=== PATIENT | female | born 2000 | race Two or more races ===

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

== ENCOUNTER 2018-04-26 17:01 | Emergency (ER) | payer MEDICAID ==
[~2018-04-26] VITALS: Ht 167.6 cm; Wt 78.0 kg
[2018-04-26] MEDS ORDERED: SODIUM CHLORIDE 0.9% 1,000 ML IV ONE (17:12)
[2018-04-26] MEDS ORDERED: ACETAMINOPHEN 325MG TABLET PO PRN (17:15)
[2018-04-26 17:52] LABS: CHLORIDE 104 mEq/L (98-107); HEMATOCRIT. 39.5 % (36.0-48.0); HEMOGLOBIN. 13.1 g/dL (12.0-16.0); MEAN CORPUSCULAR HEMOGLOBIN 29.8 pg (28.0-32.0); MEAN CORPUSCULAR VOLUME 89.9 fL (81.0-99.0); MEAN PLATELET VOLUME 8.7 fl (7.4-10.4); PLATELET 301 x1000/uL (130-400); RED BLOOD CELL COUNT 4.39 mill/uL (4.2-5.4); RED CELL DISTRIBUTION WIDTH 13.9 % (11.6-14.6)
[2018-04-26 18:18] LABS: B-HCG QUANTITATIVE 56999 mIU/mL (<3)
[2018-04-26 18:33] LABS: PLATELET ESTIMATE NORMAL
[2018-04-26 19:35] LABS: CLARITY URINE CLEAR (CLEAR); COLOR URINE YELLOW (YELLOW); KETONES URINE NEGATIVE (NEGATIVE); LEUKOCYTE ESTERASE URINE NEGATIVE (NEGATIVE); NITRITE URINE NEGATIVE (NEGATIVE); OCCULT BLOOD URINE NEGATIVE (NEGATIVE); PH URINE 6.5 (4.5-8.0); PROTEIN URINE NEGATIVE (NEGATIVE); SPECIFIC GRAVITY URINE 1.004 (1.005-1.030); UROBILINOGEN URINE 0.2 E.U./dL (0.2-1.0)
[2018-04-26 20:56] VITALS: BP 105/53
== END 2018-04-26 21:00 | disposition home or self-care (01) ==
LOC: ER 17:01
DX: O26.891 Other specified pregnancy related conditions, first trimester (principal); Z3A.12 12 weeks gestation of pregnancy; R10.30 Lower abdominal pain, unspecified; R31.9 Hematuria, unspecified; M54.5 Low back pain; F12.10 Cannabis abuse, uncomplicated
CPT/HCPCS: 36415; 76801; 80053; 81003; 83690; 84702; 85025; 86850; 86900; 86901; 87086; 99284; J7030

== ENCOUNTER 2018-04-27 10:35 | Emergency (ER) | payer MEDICAID ==
[~2018-04-27] VITALS: Ht 162.6 cm; Wt 63.0 kg
[2018-04-27] MEDS ORDERED: ACETAMINOPHEN 325MG TABLET PO ONE (12:30)
[2018-04-27 14:24] VITALS: BP 116/72
== END 2018-04-27 14:59 | disposition home or self-care (01) ==
LOC: ER 10:35
DX: O99.89 Other specified diseases and conditions complicating pregnancy, childbirth and the puerperium (principal); D13.4 Benign neoplasm of liver; M54.5 Low back pain
CPT/HCPCS: 36415; 76705; 80076; 99284

== ENCOUNTER 2018-06-01 20:08 | Emergency (ER) | payer MEDICAID ==
[~2018-06-01] VITALS: Ht 167.6 cm; Wt 73.0 kg
[2018-06-02] MEDS ORDERED: ACETAMINOPHEN 325MG TABLET PO ONE (01:45)
[2018-06-02 02:23] LABS: CLARITY URINE CLEAR (CLEAR); COLOR URINE YELLOW (YELLOW); KETONES URINE NEGATIVE (NEGATIVE); LEUKOCYTE ESTERASE URINE NEGATIVE (NEGATIVE); NITRITE URINE NEGATIVE (NEGATIVE); OCCULT BLOOD URINE NEGATIVE (NEGATIVE); PH URINE 5.5 (4.5-8.0); PROTEIN URINE NEGATIVE (NEGATIVE); SPECIFIC GRAVITY URINE 1.006 (1.005-1.030); UROBILINOGEN URINE 0.2 E.U./dL (0.2-1.0)
[2018-06-02 04:46] VITALS: BP 115/70
== END 2018-06-02 05:20 | disposition home or self-care (01) ==
LOC: ER 20:08
DX: O20.0 Threatened abortion (principal); Z3A.15 15 weeks gestation of pregnancy
CPT/HCPCS: 36415; 76801; 81025; 84702; 99284

== ENCOUNTER 2018-08-07 22:54 | Observation (INO) | payer MEDICAID ==
[~2018-08-07] VITALS: Ht 162.6 cm; Wt 65.8 kg
[2018-08-08] MEDS ORDERED: PNV1TABL50 MT (00:01)
[2018-08-08] MEDS ORDERED: FERR-71 MT (00:01)
== END 2018-08-08 00:45 | disposition home or self-care (01) ==
LOC: ER 22:54 → 8 EST LDRP 23:50 → UNDODISOB 08-08 00:45
PROVIDERS: ADMIT Specialist; ATTEND Specialist
DX: O26.899 Other specified pregnancy related conditions, unspecified trimester (principal); R10.9 Unspecified abdominal pain; O99.89 Other specified diseases and conditions complicating pregnancy, childbirth and the puerperium; M54.9 Dorsalgia, unspecified; Z3A.00 Weeks of gestation of pregnancy not specified
CPT/HCPCS: 99281; G0378

== ENCOUNTER 2018-08-15 16:04 | Observation (INO) | payer MEDICAID ==
[~2018-08-15 16:04] MED LIST: FERR-71 MT; PNV1TABL50 MT
[2018-08-15 17:02] LABS: CLARITY URINE CLEAR (CLEAR); COLOR URINE YELLOW (YELLOW); KETONES URINE NEGATIVE (NEGATIVE); LEUKOCYTE ESTERASE URINE NEGATIVE (NEGATIVE); NITRITE URINE NEGATIVE (NEGATIVE); OCCULT BLOOD URINE NEGATIVE (NEGATIVE); PROTEIN URINE NEGATIVE (NEGATIVE); SPECIFIC GRAVITY URINE 1.009 (1.005-1.030); UROBILINOGEN URINE 0.2 E.U./dL (0.2-1.0)
[2018-08-15] MEDS ORDERED: ACETAMINOPHEN 500MG TABLET PO ONE (17:30)
== END 2018-08-15 19:19 | disposition home or self-care (01) ==
LOC: ER 16:09 → INTOOBSV 16:17 → 8 EST LDRP 16:17
PROVIDERS: ADMIT Obstetrics & Gynecology; ATTEND Obstetrics & Gynecology
DX: O99.89 Other specified diseases and conditions complicating pregnancy, childbirth and the puerperium (principal); M54.9 Dorsalgia, unspecified; Z3A.27 27 weeks gestation of pregnancy
CPT/HCPCS: 76805; 76818; 81003; 99281; G0378; 99285

== ENCOUNTER 2021-02-23 12:45 | Emergency (ER) | payer MEDICAID, OTHER ==
[~2021-02-23] VITALS: Ht 162.6 cm; Wt 63.0 kg
[2021-02-23 12:49] VITALS: BP 110/62
== END 2021-02-23 19:46 | disposition home or self-care (01) ==
LOC: ER 13:19
DX: K52.9 Noninfective gastroenteritis and colitis, unspecified (principal); Z20.822 Contact with and (suspected) exposure to COVID-19
CPT/HCPCS: 81025; 87426; 99283

== ENCOUNTER 2021-10-23 10:11 | Emergency (ER) | payer MEDICAID, OTHER ==
[~2021-10-23] VITALS: Ht 162.6 cm; Wt 91.0 kg
[2021-10-23] MEDS ORDERED: KETOROLAC 30MG/ML VIAL IV STA (10:38)
[2021-10-23] MEDS ORDERED: SODIUM CHLORIDE 0.9% 1,000 ML IV ONE (11:30)
[2021-10-23 11:50] LABS: CLARITY URINE CLEAR (CLEAR); COLOR URINE YELLOW (YELLOW); KETONES URINE TRACE (NEGATIVE); LEUKOCYTE ESTERASE URINE NEGATIVE (NEGATIVE); NITRITE URINE NEGATIVE (NEGATIVE); OCCULT BLOOD URINE NEGATIVE (NEGATIVE); PH URINE 6.5 (4.5-8.0); PROTEIN URINE NEGATIVE (NEGATIVE); SPECIFIC GRAVITY URINE 1.019 (1.005-1.030)
[2021-10-23] MEDS ORDERED: KETOROLAC 60MG/2ML VIAL IM ONE (12:00)
[2021-10-23 12:33] LABS: HEMATOCRIT. 37.4 % (36.0-48.0); HEMOGLOBIN. 12.6 g/dL (12.0-16.0); MEAN CORPUSCULAR VOLUME 86.2 fL (81.0-99.0); MEAN PLATELET VOLUME 8.5 fl (7.4-10.4); PLATELET 342 x1000/uL (130-400); RED BLOOD CELL COUNT 4.34 mill/uL (4.2-5.4); RED CELL DISTRIBUTION WIDTH 14.8 % (11.6-14.6)
[2021-10-23 12:41] LABS: CHLORIDE 103 mEq/L (98-107); HCG SCREEN NEGATIVE
[2021-10-23] MEDS ORDERED: POTASSIUM CHLORIDE 20MEQ TABLET SR PO NR (12:45)
[2021-10-23 13:07] LABS: PLATELET ESTIMATE NORMAL
[2021-10-23] MEDS ORDERED: IBUP-2028 MT (13:37)
[2021-10-23 13:57] VITALS: BP 114/66
== END 2021-10-23 14:00 | disposition home or self-care (01) ==
LOC: ER 10:38
DX: B34.9 Viral infection, unspecified (principal); E87.6 Hypokalemia; Z20.822 Contact with and (suspected) exposure to COVID-19
CPT/HCPCS: 36415; 71045; 80053; 81003; 84703; 85025; 87426; 87804; 96372; 99284; C9803; J1885

== ENCOUNTER 2022-03-01 22:52 | Emergency (ER) | payer MEDICAID, OTHER ==
[~2022-03-01] VITALS: Ht 162.6 cm; Wt 84.0 kg
[~2022-03-01 22:52] MED LIST changes: +IBUP-2028 MT
[2022-03-02] MEDS ORDERED: ACETAMINOPHEN 325MG TABLET PO ONE (01:15)
[2022-03-02] MEDS ORDERED: GUAIFENESIN/CODEINE 100-10MG/5ML UDC PO ONE (01:15)
[2022-03-02] MEDS ORDERED: AMOX-494 MT (01:27)
[2022-03-02] MEDS ORDERED: TOPUD PO (01:27)
[2022-03-02] MEDS ORDERED: BENZ100C86 MT (01:27)
[2022-03-02] MEDS: GUAIFENESIN/CODEINE 200-20MG/10ML UDC PO NR ×2 (01:45→02:05)
[2022-03-02 02:07] VITALS: BP 114/78
== END 2022-03-02 02:09 | disposition home or self-care (01) ==
LOC: ER 22:52
DX: J18.9 Pneumonia, unspecified organism (principal); Z20.822 Contact with and (suspected) exposure to COVID-19
CPT/HCPCS: 71045; 81025; 87426; 99284